=== PATIENT | male | born 1975 | race African-American/Black ===

== ENCOUNTER 2019-04-05 18:36 | Inpatient (IN) | payer OTHER ==
[2019-04-05 18:48] VITALS: BMI 24.6
--- NOTE | 2019-04-05 18:48 | PDOC ---
Rapid Medical Evaluation Medical Evaluation: 04/05/19 18:43 CC: abscess to right buttock and left axilla PE: deferred. HR-107. AF. Orders: Nothing Patient will proceed to ED for continued evaluation. 04/05/19 18:48 Discharge Disposition - Diagnosis Abscess - Referrals - Patient Instructions - Post Discharge Activity
--- NOTE | 2019-04-05 19:07 | PDOC ---
History of Present Illness - General Chief Complaint: Abscess Boil Stated Complaint: FEVER/HEADACHE/BOIL/ Time Seen by Provider: 04/05/19 18:42 History Source: Patient - History of Present Illness Initial Comments: 04/05/19 19:55 Chief complaint: Fever and sores Patient is a healthy 44-year-old male who states that he has been having fevers on and off for 1 week, questionable upper respiratory symptoms. Had an runny nose which seems to have resolved. Patient states he has been sweating all week , sweating last night. Patient does not seem to be running a fever today, did not take any antipyretics. Patient came to the ER because he noticed in the last few days he had a pimple on his buttocks which has since popped but is now much bigger and worse and is draining. Patient also complaining of 1 to the left axilla and one on the abdominal wall. Patient states his last HIV test was 2 years ago. Is with 1 partner. 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 GENERAL/CONSTITUTIONAL: +fever, no: Weakness. dizziness HEAD, EYES, EARS, NOSE AND THROAT: No change in vision. No ear pain or discharge. No sore throat. CARDIOVASCULAR: No chest pain RESPIRATORY: No shortness of breath or cough GASTROINTESTINAL: No pain, nausea, vomiting, diarrhea or constipation GENITOURINARY: No dysuria MUSCULOSKELETAL: No neck or back pain SKIN: +? Abscesses NEUROLOGIC: No headache, vertigo, loss of consciousness, or loss of sensation. GENERAL: The patient is awake, alert, and fully oriented, in no acute distress. HEAD: Normal with no signs of trauma. EYES: Pupils equal, round and reactive to light, sclera anicteric, conjunctiva clear. ENT: pharynx: no erythema, no exudate, uvula midline NECK: supple CHEST: clear, nontender, rr ABD: soft, with 2 cm raised area, non-erythemic, hard to the right waistline with some scaling at the top of it, consistent with small abscess, nonfluctuant. Buttocks with 6 cm round tender, warm, erythemic, hard area with open center, abraded with small amount of drainage. BACK: no tenderness or signs of injury EXTREMITIES: Left axilla with small tender hard non-erythemic area, less than 2 cm. Rest of extremities, normal range of motion, no edema. NEUROLOGICAL: Normal speech, normal gait. SKIN: Warm, Dry Past History - Past Medical History Allergies/Adverse Reactions: Allergies Allergy/AdvReac Type Severity Reaction Status Date / Time No Known Allergies Allergy Verified 04/05/19 18:43 - Psycho Social/Smoking Cessation Hx Smoking History: Current every day smoker Have you smoked in the past 12 months: Yes Number of Cigarettes Smoked Daily: 0 Information on smoking cessation initiated: Yes Hx Alcohol Use: No Drug/Substance Use Hx: Yes *Physical Exam - Vital Signs Last Vital Signs Temp Pulse Resp BP Pulse Ox 98.1 F 107 H 18 150/66 98 04/05/19 18:43 04/05/19 18:43 04/05/19 18:43 04/05/19 18:43 04/05/19 18:43 ED Treatment Course - LABORATORY CBC & Chemistry Diagram: 04/05/19 19:50 04/05/19 19:50 Medical Decision Making - Medical Decision Making 04/05/19 19:59 Healthy 44-year-old male with fevers on and off who also has cellulitis/ questionable abscess to the buttocks, not including the perineal area and 2 small satellite lesions, one in the left axilla and one on the waistline that are much smaller and non-erythemic. Patient with last HIV test 2 years ago, states a monogamous relationship. 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 Patient will need labs given the size of the area and need for CT scan, check for white count, lactic acid. Signed out to SAYRA Lux for further evaluation and work-up 04/05/19 20:01 Discharge - Discharge Information Problems reviewed: Yes Clinical Impression/Diagnosis: Abscess - Follow up/Referral - Patient Discharge Instructions - Post Discharge Activity
[2019-04-05 20:08] LABS: BASO % 0.7 % (0-2.0); EOS % 0.5 % (0-4.5); HEMATOCRIT 39.6 % (35.4-49); LYMPH % 21.4 % (8-40); MCH 31.9 pg (25.7-33.7); MCHC 32.9 g/dl (32.0-35.9); MEAN PLT VOLUME 8.6 fl (7.5-11.1); MONO % 12.9 % (3.8-10.2); NEUT % 64.5 % (42.8-82.8); PLATELET COUNT 259 K/MM3 (134-434); RBC 4.08 M/mm3 (4.00-5.60); RDW 12.8 % (11.9-15.9); WHITE BLOOD COUNT 17.2 K/mm3 (4.0-10.0)
[2019-04-05 20:25] LABS: BLOOD UREA NITROGEN 13.5 mg/dL (7-18); CALCIUM 8.9 mg/dL (8.5-10.1); CREATININE 1.2 mg/dL (0.55-1.3); POTASSIUM 3.9 mmol/L (3.5-5.1)
--- NOTE | 2019-04-05 20:31 | PDOC ---
*Physical Exam - Vital Signs Last Vital Signs Temp Pulse Resp BP Pulse Ox 98.1 F 107 H 18 150/66 98 04/05/19 18:43 04/05/19 18:43 04/05/19 18:43 04/05/19 18:43 04/05/19 18:43 ED Treatment Course - LABORATORY CBC & Chemistry Diagram: 04/05/19 19:50 04/05/19 19:50 - ADDITIONAL ORDERS Additional order review: Laboratory Results 04/05/19 04/05/19 19:50 19:50 Sodium 136 Potassium 3.9 Chloride 104 Carbon Dioxide 27 Anion Gap 4 L BUN 13.5 Creatinine 1.2 Est GFR (CKD-EPI)AfAm 84.13 Est GFR (CKD-EPI)NonAf 72.59 Random Glucose 129 H Lactic Acid 0.9 Calcium 8.9 04/05/19 19:50 RBC 4.08 MCV 97.0 H MCHC 32.9 RDW 12.8 MPV 8.6 Neutrophils % 64.5 Lymphocytes % 21.4 Monocytes % 12.9 H Eosinophils % 0.5 Basophils % 0.7 - RADIOLOGY Radiology Studies Ordered: Category Date Time Status PELVIS CT WITH CONTRAST [CT] Stat CT Scan 04/05/19 20:24 Ordered Medical Decision Making - Medical Decision Making Patient signed out to me by 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 Melissa Labs reviewed and notable for marked leukocytosis, lactic is normal Patient is currently pending results of pelvis CT 04/05/19 20:31 CT pelvis shows 3.4 x 2 x 1 cm superficial subcutaneous fluid structure in the right buttock, likely an abscess No other findings noted I&D was performed for right buttock abscess with large amount of drainage (mix of blood and purulent drainage), site of I&D was packed with iodoform packing Patient tolerated procedure well Patient given dose of clindamycin We will admit patient for observation 04/05/19 23:46 Discharge - Discharge Information Problems reviewed: Yes Clinical Impression/Diagnosis: Abscess Condition: Stable - Admission Yes - Follow up/Referral - Patient Discharge Instructions - Post Discharge Activity
[2019-04-05] MEDS ORDERED: CLINDAMYCIN 600MG PREMIX IVPB 600 MG/50 ML BAG IVPB ONE (21:45)
--- NOTE | 2019-04-06 00:42 | HP ---
CHIEF COMPLAINT: skin abscess PCP: none HISTORY OF PRESENT ILLNESS: 44 y.o. M no significant PMH or surgical hx presenting for multiple skin abscesses. 5 days ago the patient noticed a pimple on his R buttock & popped it. The next day he noticed increasing tenderness and edema surrounding the site with mild pain. He also began to have fevers at home Tmax 102F. At this time he also noted he had another pimple at his right waistband; he did not pop this one but it also became tender, warm, red and edematous. He endorses a recent weight loss of ~8 lbs this week, decreased PO intake, chills, myalgias and diaphoresis over the last few days as well. Denies N/V/D/ penile discharge/ pelvic pain. These symptoms have prohibitied him from using the gym which he does regularly. He states when he works out he usually wears long pants/ shirts and does not have much direct skin to skin contact with gym equipment. Yesterday he began having L axillary discomfort and noticed another pimple in the L axilla. Denies sick contacts/ recent travel. 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 Smoking: denies Alcohol: denies Drugs: occasional marijuana Sexual history: monogomous with 1 female partner. Recently tested for HIV & other std's, all negative Allergies No Known Allergies Allergy (Verified 04/05/19 18:43) HOME MEDICATIONS: REVIEW OF SYSTEMS CONSTITUTIONAL: fever, chills, diaphoresis, generalized weakness, malaise, loss of appetite, weight change Absent: HEENT: Absent: rhinorrhea, nasal congestion, throat pain, throat swelling, difficulty swallowing, mouth swelling, ear pain, eye pain, visual changes CARDIOVASCULAR: Absent: chest pain, syncope, palpitations, irregular heart rate, lightheadednes s, peripheral edema RESPIRATORY: Absent: cough, shortness of breath, dyspnea with exertion, orthopnea, wheezing, stridor, hemoptysis GASTROINTESTINAL: Absent: abdominal pain, abdominal distension, nausea, vomiting, diarrhea, constipation, melena, hematochezia GENITOURINARY: Absent: dysuria, frequency, urgency, hesitancy, hematuria, flank pain, genital pain MUSCULOSKELETAL: myalgia Absent: arthralgia, joint swelling, back pain, neck pain SKIN: Absent: rash, itching, pallor HEMATOLOGIC/IMMUNOLOGIC: Absent: easy bleeding, easy bruising, lymphadenopathy, frequent infections ENDOCRINE: Absent: heat intolerance, cold intolerance NEUROLOGIC: Absent: headache, focal weakness or paresthesias, dizziness, unsteady gait, seizure, mental status changes, bladder or bowel incontinence PSYCHIATRIC: Absent: anxiety, depression, suicidal or homicidal ideation, hallucinations. PHYSICAL EXAMINATION Vital Signs - 24 hr 04/05/19 18:43 Temperature 98.1 F Pulse Rate 107 H Respiratory 18 Rate Blood Pressure 150/66 O2 Sat by Pulse 98 Oximetry (%) GENERAL: Awake, alert, and fully oriented, in no acute distress. HEENT: NCAT. No lymphadenopathy noted. LUNGS: CTABL. No wheezes, and no crackles. No accessory muscle use. HEART: RRR, S1 and S2 without mrg ABDOMEN: Soft NTND +BS MUSCULOSKELETAL: Full ROM all joints. EXTREMITIES: 2+ pulses, warm, well-perfused. No peripheral edema. GENITOURINARY: No groin lymphadenopathy noted. NEUROLOGICAL: Cranial nerves II-XII intact. PSYCHIATRIC: Appropriate mood and affect. SKIN: incised & drained abscess to R buttock; surrounding area erythematous & warm to touch. Serosanguinous discharge noted on dressing. another R- suprapubic abscess noted; firm to touch, ~3x4cm nonpurulent; point of central punctation noted. L axillary pimple noted. Laboratory Results - last 24 hr Laboratory Last Values WBC 17.2 K/mm3 (4.0-10.0) H 04/05/19 19:50 RBC 4.08 M/mm3 (4.00-5.60) 04/05/19 19:50 Hgb 13.0 GM/dL (11.7-16.9) 04/05/19 19:50 Hct 39.6 % (35.4-49) 04/05/19 19:50 MCV 97.0 fl (80-96) H 04/05/19 19:50 MCH 31.9 pg (25.7-33.7) 04/05/19 19:50 MCHC 32.9 g/dl (32.0-35.9) 04/05/19 19:50 RDW 12.8 % (11.9-15.9) 04/05/19 19:50 Plt Count 259 K/MM3 (134-434) 04/05/19 19:50 MPV 8.6 fl (7.5-11.1) 04/05/19 19:50 Absolute Neuts (auto) 11.1 K/mm3 (1.5-8.0) H 04/05/19 19:50 Neutrophils % 64.5 % (42.8-82.8) 04/05/19 19:50 Lymphocytes % 21.4 % (8-40) 04/05/19 19:50 Monocytes % 12.9 % (3.8-10.2) H 04/05/19 19:50 Eosinophils % 0.5 % (0-4.5) 04/05/19 19:50 Basophils % 0.7 % (0-2.0) 04/05/19 19:50 Nucleated RBC % 0 % (0-0) 04/05/19 19:50 Sodium 136 mmol/L (136-145) 04/05/19 19:50 Potassium 3.9 mmol/L (3.5-5.1) 04/05/19 19:50 Chloride 104 mmol/L (98-107) 04/05/19 19:50 Carbon Dioxide 27 mmol/L (21-32) 04/05/19 19:50 Anion Gap 4 MMOL/L (8-16) L 04/05/19 19:50 BUN 13.5 mg/dL (7-18) 04/05/19 19:50 Creatinine 1.2 mg/dL (0.55-1.3) 04/05/19 19:50 Est GFR (CKD-EPI)AfAm 84.13 04/05/19 19:50 Est GFR (CKD-EPI)NonAf 72.59 04/05/19 19:50 Random Glucose 129 mg/dL (74-106) H 04/05/19 19:50 Lactic Acid 0.9 mmol/L (0.4-2.0) 04/05/19 19:50 Calcium 8.9 mg/dL (8.5-10.1) 04/05/19 19:50 HIV 1&2 Antibody Screen Negative 04/05/19 21:24 HIV P24 Antigen Negative 04/05/19 21:24 ASSESSMENT/PLAN: 44 y.o. M no PMH presenting for multiple skin abscesses. #Sepsis likely 2/2 skin abscesses -present @ R buttock & R pubis-- pelvic ct showing 3.4 x 2 x 1cm superficial subcutaneous fluid structure along R buttock w/ surrounding edema -no lymphadenopathy noted on physical exam -leukocytosis 17.2; afebrile in ED -s/p clindamycin 1 dose in ED -continuing on vanc & zosyn -HIV negative -F/u MRSA, flu swabs -f/u blood & urine cultures, UA, G/C -ID consulted-- Dr. Solo -Gen surg consulted- Dr. Fairchild #FEN -gentle hydration -replete lytes as needed -NPO pending surgical recs #PPX -heparin sq #Dispo med surg Visit type - Emergency Visit Emergency Visit: Yes ED Registration Date: 04/06/19 Care time: The patient presented to the Emergency Department on the above date and was hospitalized for further evaluation of their emergent condition. - New Patient This patient is new to me today: Yes Date on this admission: 04/20/19 - Critical Care Critical Care patient: No ATTENDING PHYSICIAN STATEMENT I saw and evaluated the patient. I reviewed the resident's note and discussed the case with the resident. I agree with the resident's findings and plan as documented. SUBJECTIVE: OBJECTIVE: ASSESSMENT AND PLAN:
[2019-04-06] MEDS ORDERED: SODIUM CHLORIDE 1,000 ML IV SCH (00:45)
--- NOTE | 2019-04-06 01:58 | PN ---
Teaching Attending Note Name of Resident: Ileana Parr ATTENDING PHYSICIAN STATEMENT I saw and evaluated the patient. I reviewed the resident's note and discussed the case with the resident. I agree with the resident's findings and plan as documented. SUBJECTIVE: 44-year-old male previously healthy with no significant past medical history presents with right buttock abscess, left axilla abscess, suprapubic abscess that he noticed about 1 to 2 weeks ago. He also reported some recent chills and about a 8 pound weight loss over the past week. He denies any past medical history, no family history of diabetes. He reports working out regularly at the gym, does lay on the mats often. No previous skin infections in the past.Denied any history of needle use. In the emergency room received 1 dose of IV clindamycin and right buttock abscess was drained and packed. No culture was sent. OBJECTIVE: Last Vital Signs Temp Pulse Resp BP Pulse Ox 98.1 F 107 H 18 150/66 98 04/05/19 18:43 04/05/19 18:43 04/05/19 18:43 04/05/19 18:43 04/05/19 18:43 Physical exam was remarkable for a well-built male with a right buttock abscess that was status post drainage impact. Suprapubic fluctuant area, erythematous. Left axilla with fluctuant erythematous mass. Rest of physical exam is unremarkable. Abnormal Lab Results 04/05/19 04/05/19 19:50 19:50 WBC 17.2 H MCV 97.0 H Absolute Neuts (auto) 11.1 H Monocytes % 12.9 H Anion Gap 4 L Random Glucose [address] was performed and showed a 3.4 cm x 2 x 1 cm superficial subcutaneous subtle fluid structure along the right buttock HIV serology was negative ASSESSMENT AND PLAN: 44-year-old male with sepsis secondary to multiple skin infections, abscess as described above status post I&D and packing. Should rule out flu with flu swab. Admit to [facility] Blood cultures sent IV Zosyn and vancomycin empirically ID consult Drains suprapubic and left axilla cultures with surgery Send abscess for culture MRSA nares screen Send hemoglobin A1c to rule out diabetes Advise better hygiene while at gym SCDs for DVT prophylaxis
[2019-04-06] MEDS ORDERED: PIPERACILLIN/TAZOB 3.375 GM 3.375 GM in DEXTROSE 5%-WATER - 50 ML IVPB SCH ×2 (03:00→05:04)
[2019-04-06] MEDS ORDERED: PIPERACILLIN/TAZOB 3.375 GM 3.375 GM/50 ML BAG IVPB ONE (03:20)
[2019-04-06] MEDS ORDERED: VANCOMYCIN 1 GM in D5W (PRE-DOCKED) 1,000 MG/250 ML IVPB SCH (05:15)
--- NOTE | 2019-04-06 06:19 | PDOC ---
*Physical Exam - Vital Signs Last Vital Signs Temp Pulse Resp BP Pulse Ox 98.1 F 107 H 18 150/66 98 04/05/19 18:43 04/05/19 18:43 04/05/19 18:43 04/05/19 18:43 04/05/19 18:43 ED Treatment Course - LABORATORY CBC & Chemistry Diagram: 04/05/19 19:50 04/05/19 19:50 - ADDITIONAL ORDERS Additional order review: Laboratory Results 04/05/19 04/05/19 19:50 19:50 Sodium 136 Potassium 3.9 Chloride 104 Carbon Dioxide 27 Anion Gap 4 L BUN 13.5 Creatinine 1.2 Est GFR (CKD-EPI)AfAm 84.13 Est GFR (CKD-EPI)NonAf 72.59 Random Glucose 129 H Lactic Acid 0.9 Calcium 8.9 04/05/19 19:50 RBC 4.08 MCV 97.0 H MCHC 32.9 RDW 12.8 MPV 8.6 Neutrophils % 64.5 Lymphocytes % 21.4 Monocytes % 12.9 H Eosinophils % 0.5 Basophils % 0.7 - Medications Given in the ED: ED Medications Discontinued Medications Generic Name Dose Route Start Last Admin Trade Name Freq PRN Reason Stop Dose Admin Clindamycin Phosphate 600 mg in 50 mls @ 100 mls/hr 04/05/19 21:45 04/05/19 23:08 Cleocin 600 Mg Premix Ivpb - IVPB 04/05/19 22:14 100 mls/hr ONCE ONE Administration Piperacillin Sod/Tazobactam 50 mls @ 100 mls/hr 04/06/19 03:00 04/06/19 03:45 Sod 3.375 gm/ Dextrose IVPB 100 mls/hr Q6H JEFFREY Administration Protocol Medical Decision Making - Medical Decision Making 04/06/19 06:18 Case reviewed, agree with assessment and plan Discharge - Discharge Information Problems reviewed: Yes Clinical Impression/Diagnosis: Abscess Condition: Stable - Follow up/Referral - Patient Discharge Instructions - Post Discharge Activity
[2019-04-06] MEDS ORDERED: HEPARIN NA (PORCINE) 5,000 UNITS/ML 1ML VIAL ONE (06:23)
[2019-04-06] MEDS ORDERED: VANCOMYCIN 1 GRAM (PRE-DOCKED) 1,000 MG/250 ML BAG IVPB ONE (06:23)
[2019-04-06] MEDS: HEPARIN NA (PORCINE) 5,000 UNITS/ML 1ML VIAL SQ SCH ×2 (06:54→16:03)
--- NOTE | 2019-04-06 08:34 | CONSULT ---
- Consultation REQUESTING PROVIDER: CONSULT REQUEST: We have been asked to surgically evaluate this patient for buttock abscess PCP:Odette Fofana NP HISTORY OF PRESENT ILLNESS: 44yo M was consulted to surgery for buttock abscess. Pt states that swelling started about 3 days ago first as a pimple then got bigger and more painful. Pt denies fever, n/v, diarrhea, or constipation. Pt denies previous history of buttock abscess. PMHx: denies PSHx: denies Home Medications Medication Instructions Recorded NK [No Known Home Medication] 04/06/19 Allergies Allergy/AdvReac Type Severity Reaction Status Date / Time No Known Allergies Allergy Verified 04/05/19 18:43 REVIEW OF SYSTEMS: CONSTITUTIONAL: Absent: fever, chills, diaphoresis, generalized weakness, malaise, loss of appetite, weight change CARDIOVASCULAR: Absent: chest pain, syncope, palpitations, irregular heart rate, lightheadedness , peripheral edema RESPIRATORY: Absent: cough, shortness of breath, dyspnea with exertion, wheezing, stridor, hemoptysis GASTROINTESTINAL: Absent: abdominal pain, abdominal distension, nausea, vomiting, diarrhea, constipation, melena, hematochezia GENITOURINARY: Absent: dysuria, frequency, urgency, hesitancy, hematuria, flank pain, genital pain MUSCULOSKELETAL: Absent: myalgia, arthralgia, joint swelling, back pain, neck pain PHYSICAL EXAM: GENERAL: Awake, alert, and fully oriented, in no acute distress. HEAD: Normal with no signs of trauma. EYES: PERRL, sclera anicteric, conjunctiva clear. NECK: Normal ROM, JVD, or masses. LUNGS: breathing comfortably MUSCULOSKELETAL: Normal ROM at all joints. No bony deformities or tenderness. No CVA tenderness. UPPER EXTREMITIES: warm, well-perfused. No cyanosis. Cap refill <2 seconds. No peripheral edema. LOWER EXTREMITIES: warm, well-perfused. No calf tenderness. No peripheral edema. NEUROLOGICAL: Normal speech, gait not observed. PSYCH: Cooperative. Good eye contact. Appropriate mood and affect. SKIN: Rt buttock shows 3cm x 4cm hard tender, purulent discharge, previous I&D incision with packing in place. Rt inguinal area shows 2 x 2cm tender swelling, no active drainage, mild fluctulance Vital Signs Temperature 100 F H 04/06/19 07:07 Pulse Rate 123 H 04/06/19 07:07 Respiratory Rate 18 04/06/19 07:07 Blood Pressure 96/47 L 04/06/19 07:07 O2 Sat by Pulse Oximetry (%) 100 04/06/19 07:07 Lab Results WBC 17.2 K/mm3 (4.0-10.0) H 04/05/19 19:50 RBC 4.08 M/mm3 (4.00-5.60) 04/05/19 19:50 Hgb 13.0 GM/dL (11.7-16.9) 04/05/19 19:50 Hct 39.6 % (35.4-49) 04/05/19 19:50 MCV 97.0 fl (80-96) H 04/05/19 19:50 MCHC 32.9 g/dl (32.0-35.9) 04/05/19 19:50 RDW 12.8 % (11.9-15.9) 04/05/19 19:50 Plt Count 259 K/MM3 (134-434) 04/05/19 19:50 Sodium 136 mmol/L (136-145) 04/05/19 19:50 Potassium 3.9 mmol/L (3.5-5.1) 04/05/19 19:50 Chloride 104 mmol/L (98-107) 04/05/19 19:50 Carbon Dioxide 27 mmol/L (21-32) 04/05/19 19:50 Anion Gap 4 MMOL/L (8-16) L 04/05/19 19:50 BUN 13.5 mg/dL (7-18) 04/05/19 19:50 Creatinine 1.2 mg/dL (0.55-1.3) 04/05/19 19:50 Random Glucose 129 mg/dL (74-106) H 04/05/19 19:50 Calcium 8.9 mg/dL (8.5-10.1) 04/05/19 19:50 Problem List - Problems (1) Abscess Assessment/Plan: Plan -will bring to OR today for formal incision and drainage of buttock abscess -continue antibiotics per med/ID -NPO, IVF Pt discussed with Dr. Fairchild who agrees with plan Code(s): L02.91 - CUTANEOUS ABSCESS, UNSPECIFIED
[2019-04-06 08:38] LABS: BASO % 0.2 % (0-2.0); EOS % 0.6 % (0-4.5); HEMATOCRIT 36.1 % (35.4-49); LYMPH % 18.5 % (8-40); MCH 32.1 pg (25.7-33.7); MCHC 33.3 g/dl (32.0-35.9); MEAN CELL VOLUME 96.2 fl (80-96); MEAN PLT VOLUME 8.5 fl (7.5-11.1); MONO % 13.2 % (3.8-10.2); NEUT % 67.5 % (42.8-82.8); PLATELET COUNT 250 K/MM3 (134-434); RBC 3.75 M/mm3 (4.00-5.60); RDW 12.8 % (11.9-15.9); WHITE BLOOD COUNT 14.7 K/mm3 (4.0-10.0)
[2019-04-06 08:56] LABS: INR 1.38 (0.83-1.09); PROTHROMBIN TIME (PATIENT) 16.3 SEC (9.7-13.0)
[2019-04-06 08:59] LABS: ACTIVATED PTT 33.6 SECONDS (25.2-36.5)
[2019-04-06 09:02] LABS: ALBUMIN 3.1 g/dl (3.4-5.0); BILIRUBIN,TOTAL 0.8 mg/dL (0.2-1); BLOOD UREA NITROGEN 11.2 mg/dL (7-18); CALCIUM 8.4 mg/dL (8.5-10.1); CREATININE 1.1 mg/dL (0.55-1.3); POTASSIUM 3.9 mmol/L (3.5-5.1); TOT PROT 7.2 g/dl (6.4-8.2)
--- NOTE | 2019-04-06 10:15 | PN ---
Physical Exam: SUBJECTIVE: Patient seen and examined in ED holding awaiting bed assignment. for the OR today, however patient was not NPO and ate breakfast. NPO ordered now placed. PA aware. OBJECTIVE: Patient is a 44 year old male with no significant past medical history. He reports fever and chills at home for past few days. he presents with multiple skin abscesses. He first noticed a pimple on right buttocks which he popped. He also began to have fevers at home Tmax 102F. At this time he also noted he had another pimple at his right waistband; he did not pop this one but it also became tender, warm, red and edematous. He endorses a recent weight loss of ~8 lbs this week, decreased PO intake, chills, myalgias and diaphoresis over the last few days as well. Yesterday he began having L axillary discomfort and noticed another pimple in the L axilla. Denies sick contacts/ recent travel. In the ED a right buttock abscess was drained and packing placed. site is stained and intact. Period Temp Pulse Resp BP Sys/Corbett Pulse Ox Last 24 Hr 98.1 F-100 F 69-123 18-18 96-150/37-66 98-100 GENERAL: The patient is awake, alert, and fully oriented, in no acute distress. HEAD: Normal with no signs of trauma. EYES: PERRL, extraocular movements intact, sclera anicteric, conjunctiva clear. No ptosis. ENT: Ears normal, nares patent, oropharynx clear without exudates, moist mucous membranes. NECK: Trachea midline, full range of motion, supple. LUNGS: Breath sounds equal, clear to auscultation bilaterally, no wheezes HEART: Regular rate and rhythm ABDOMEN: Soft, nontender, nondistended, normoactive bowel sounds EXTREMITIES: no edema. SKIN: (s/p I&D right buttocks with reddened surrounding skin-dressing stained and intact), suprapubic abscess/mass noted which firm and tender to touch. left axillary pimple, reddened and tender. Laboratory Results - last 24 hr 04/05/19 04/05/19 04/05/19 19:50 19:50 19:50 WBC 17.2 H RBC 4.08 Hgb 13.0 Hct 39.6 MCV 97.0 H MCH 31.9 MCHC 32.9 RDW 12.8 Plt Count 259 MPV 8.6 Absolute Neuts (auto) 11.1 H Neutrophils % 64.5 Lymphocytes % 21.4 Monocytes % 12.9 H Eosinophils % 0.5 Basophils % 0.7 Nucleated RBC % 0 PT with INR INR PTT (Actin FS) Sodium 136 Potassium 3.9 Chloride 104 Carbon Dioxide 27 Anion Gap 4 L BUN 13.5 Creatinine 1.2 Est GFR (CKD-EPI)AfAm 84.13 Est GFR (CKD-EPI)NonAf 72.59 Random Glucose 129 H Hemoglobin A1c % Lactic Acid 0.9 Calcium 8.9 Total Bilirubin AST ALT Alkaline Phosphatase Total Protein Albumin HIV 1&2 Antibody Screen HIV P24 Antigen Influenza A (Rapid) Influenza B (Rapid) 04/05/19 04/06/19 04/06/19 21:24 06:20 07:55 WBC 14.7 H RBC 3.75 L Hgb 12.0 Hct 36.1 MCV 96.2 H MCH 32.1 MCHC 33.3 RDW 12.8 Plt Count 250 MPV 8.5 Absolute Neuts (auto) 9.9 H Neutrophils % 67.5 Lymphocytes % 18.5 Monocytes % 13.2 H Eosinophils % 0.6 Basophils % 0.2 Nucleated RBC % 0 PT with INR INR PTT (Actin FS) Sodium Potassium Chloride Carbon Dioxide Anion Gap BUN Creatinine Est GFR (CKD-EPI)AfAm Est GFR (CKD-EPI)NonAf Random Glucose Hemoglobin A1c % Lactic Acid Calcium Total Bilirubin AST ALT Alkaline Phosphatase Total Protein Albumin HIV 1&2 Antibody Screen Negative HIV P24 Antigen Negative Influenza A (Rapid) Negative Influenza B (Rapid) Negative 04/06/19 04/06/19 04/06/19 07:55 07:55 07:55 WBC RBC Hgb Hct MCV MCH MCHC RDW Plt Count MPV Absolute Neuts (auto) Neutrophils % Lymphocytes % Monocytes % Eosinophils % Basophils % Nucleated RBC % PT with INR 16.30 H INR 1.38 H PTT (Actin FS) 33.6 Sodium 137 Potassium 3.9 Chloride 105 Carbon Dioxide 30 Anion Gap 3 L BUN 11.2 Creatinine 1.1 Est GFR (CKD-EPI)AfAm 93.47 Est GFR (CKD-EPI)NonAf 80.64 Random Glucose 114 H Hemoglobin A1c % 5.1 Lactic Acid Calcium 8.4 L Total Bilirubin 0.8 AST 14 L ALT 24 Alkaline Phosphatase 99 Total Protein 7.2 Albumin 3.1 L HIV 1&2 Antibody Screen HIV P24 Antigen Influenza A (Rapid) Influenza B (Rapid) Active Medications Generic Name Dose Route Start Last Admin Trade Name Freq PRN Reason Stop Dose Admin Heparin Sodium (Porcine) 5,000 unit 04/06/19 06:00 04/06/19 06:54 Heparin - SQ 5,000 unit TID JEFFREY Administration Sodium Chloride 1,000 mls @ 75 mls/hr 04/06/19 00:45 04/06/19 01:14 Normal Saline - IV 75 mls/hr ASDIR JEFFREY Administration Piperacillin Sod/Tazobactam 50 mls @ 100 mls/hr 04/06/19 05:04 Sod 3.375 gm/ Dextrose IVPB 04/06/19 21:29 Q6H-IV JEFFREY Protocol Piperacillin Sod/Tazobactam 50 mls @ 100 mls/hr 04/07/19 03:00 Sod 3.375 gm/ Dextrose IVPB Q6H-IV JEFFREY Protocol Vancomycin HCl 1,000 mg 04/07/19 05:15 Vancomycin (Pre-Docked) IVPB Q24H JEFFREY Protocol ASSESSMENT/PLAN: Problem List - Problems (1) Leukocytosis Assessment/Plan: wbc 17 on zosyn/vanco id following Code(s): D72.829 - ELEVATED WHITE BLOOD CELL COUNT, UNSPECIFIED (2) Abscess Assessment/Plan: multiple abscess, for OR for formal incision and drainage of buttock abscess. on zosyn and vanco per ID. Code(s): L02.91 - CUTANEOUS ABSCESS, UNSPECIFIED (3) Fever Code(s): R50.9 - FEVER, UNSPECIFIED (4) Skin abscess Assessment/Plan: for surgical intervention Code(s): L02.91 - CUTANEOUS ABSCESS, UNSPECIFIED (5) DVT prophylaxis Assessment/Plan: on heparin early ambulation post surgery incentive spirometer Code(s): Z29.9 - ENCOUNTER FOR PROPHYLACTIC MEASURES, UNSPECIFIED (6) Prophylactic measure Assessment/Plan: on heparin incentive spirometer Code(s): Z29.9 - ENCOUNTER FOR PROPHYLACTIC MEASURES, UNSPECIFIED Visit type - Emergency Visit Emergency Visit: Yes ED Registration Date: 04/06/19 Care time: The patient presented to the Emergency Department on the above date and was hospitalized for further evaluation of their emergent condition. - New Patient This patient is new to me today: Yes Date on this admission: 04/06/19 - Critical Care Critical Care patient: No - Discharge Referral Referred to [facility] Med P.C.: No
--- NOTE | 2019-04-06 11:06 | PN ---
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 developed flu like symptoms almost 2 weeks ago, followed by a pimple on his right buttock about 5 days ago- he squeezed and popped thi pimple and the area became larger and more painful he also notes a pimple in his right groin and left axilla no antibiotics at home fever of 102 at home, no appetite 8 pound weight loss no IVDU no prior skin infections no diabetes-hgbaic normal multiple skin abscesses suggestive of community MRSA infection r/o bacteremia- f/u blood cultures culture the abscess operative debridement today vanco/zosyn hiv testing Problem List - Problems (1) Fever Code(s): R50.9 - FEVER, UNSPECIFIED (2) Skin abscess Code(s): L02.91 - CUTANEOUS ABSCESS, UNSPECIFIED
[2019-04-06] MEDS: PIPERACILLIN/TAZOB 3.375 GM 3.375 GM in DEXTROSE 5%-WATER - 50 ML IVPB SCH ×3 (12:19→22:23)
--- NOTE | 2019-04-06 14:10 | CONS ---
INFECTIOUS DISEASE CONSULTATION DATE OF CONSULTATION: DATE OF DICTATION: 04/06/2019 HISTORY OF PRESENT ILLNESS: This is a 44-year-old man. No prior admissions. 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 About 2 weeks ago, he had a flu-like syndrome with fevers and chills. He had a lot of sweats. After that, he developed a pimple on his right buttock that he squeezed and drained. He says about 5 days ago, at the same time, he noted he was getting a pimple on his right groin. The buttock pimple became indurated and painful and he presented to the ER. He reports he has been having fevers at home as high as 102. He has had some anorexia and an 8-pound weight loss. There has been no nausea, vomiting, diarrhea or dysuria. He denies any history of injection substance use. Last HIV test 3 years ago was negative. He never had an abscess before and his partner did not, as well. He denies any history of eczema in the past. PAST MEDICAL HISTORY: Unremarkable. SURGICAL HISTORY: Unremarkable. He has had two fractures of his finger playing basketball. 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 Denies alcohol or substance use. Smokes marijuana occasionally. He has 1 female partner. ALLERGIES: There are no known drug allergies. REVIEW OF SYSTEMS: As per HPI. He denies nausea, vomiting, diarrhea or dysuria and is feeling better today. PHYSICAL EXAMINATION: Vital Signs: His T-maximum is 100, pulse is 123, blood pressure 96/47, respiratory rate 18, he is saturating 100% on room air. HEENT: He is normocephalic. His eyes are anicteric. There are no conjunctival hemorrhages. He had no thrush. Neck: Supple. Lungs: Clear to auscultation. Heart: Regular rate and rhythm. Abdomen: Soft. Nontender. Extremities: Without edema. Skin: The abscess on his buttock was drained in the ER and packed. He has purulence extruding from the area from around the site of the packing. He has an indurated, 2-cm subcutaneous abscess in his right groin, as well as a -cm indurated area under his left axilla. LABORATORIES: Notable admission white count of 17, today is 14.7, hemoglobin is 12, platelets are 250. BUN and creatinine are 11 and 1.1. Hemoglobin A1c is 5.1. LFTs are normal. Cultures are pending. IMAGING: He had a CT of his pelvis done that shows a 3.4 x 2 x 1-cm superficial subcutaneous collection in the right buttock. In summary, this is a 44-year-old man with multiple skin abscesses suggestive of community MRSA infection. Rule out bacteremia. Follow up blood cultures. Would culture the abscess. Operative debridement today. Vancomycin and Zosyn for now. HIV testing has been ordered. Further recommendations to follow. Stefany [id number]
[2019-04-06 14:36] LABS: PH,URINE 5.5 (5.0-8.0); URINE APPEARANCE CLEAR; URINE BILIRUBIN NEGATIVE (NEGATIVE); URINE COLOR YELLOW; URINE GLUCOSE (UA) NEGATIVE (NEGATIVE); URINE KETONE NEGATIVE (NEGATIVE); URINE LEUK ESTERASE NEGATIVE (NEGATIVE); URINE NITRITE NEGATIVE (NEGATIVE); URINE PROTEIN NEGATIVE (NEGATIVE)
[2019-04-06] MEDS ORDERED: LIDOCAINE HCL 1%, 10 MG/ML (20ML VIAL) ONE (14:36)
[2019-04-06] MEDS ORDERED: MIDAZOLAM HCL 2 MG/2 ML SINGLE DOSE VIAL ONE ×2 (15:25→16:31)
[2019-04-06] MEDS ORDERED: VANCOMYCIN 1,250 MG in DEXTROSE 5%-WATER - 250 ML IVPB SCH (18:00)
[2019-04-06] MEDS: VANCOMYCIN HCL 1,250 MG in DEXTROSE 5%-WATER - 250 ML IVPB SCH (18:20)
[2019-04-06] MEDS ORDERED: ACETAMINOPHEN 325 MG TABLET (FP) PO ONE (18:30)
[2019-04-06] MEDS ORDERED: oxyCODONE HCL 5 MG TABLET PO ONE (18:30)
[2019-04-06] MEDS: SODIUM CHLORIDE 1,000 ML IV SCH (19:28)
[2019-04-06] MEDS ORDERED: PIPERACILLIN/TAZOBACTAM 3.375 GM VIAL IVPB ONE (22:18)
[2019-04-06] MEDS ORDERED: DEXTROSE 5%-WATER - 50 ML IVPB ONE (22:18)
[2019-04-07] MEDS ORDERED: PIPERACILLIN/TAZOBACTAM 3.375 GM VIAL IVPB ONE ×2 (02:15→09:30)
[2019-04-07] MEDS ORDERED: DEXTROSE 5%-WATER - 50 ML IVPB ONE ×2 (02:15→09:30)
[2019-04-07] MEDS ORDERED: ACETAMINOPHEN 325 MG TABLET (FP) PO ONE (02:21)
[2019-04-07] MEDS: PIPERACILLIN/TAZOB 3.375 GM 3.375 GM in DEXTROSE 5%-WATER - 50 ML IVPB SCH ×2 (02:39→10:00)
[2019-04-07] MEDS ORDERED: VANCOMYCIN 1 GM in D5W (PRE-DOCKED) 1,000 MG/250 ML IVPB SCH (05:15)
[2019-04-07] MEDS: VANCOMYCIN HCL 1,250 MG in DEXTROSE 5%-WATER - 250 ML IVPB SCH ×2 (06:14→17:58)
[2019-04-07] MEDS: ACETAMINOPHEN 325 MG TABLET (FP) PO PRN (07:36)
[2019-04-07 07:55] LABS: BASO % 0.1 % (0-2.0); EOS % 1.7 % (0-4.5); HEMATOCRIT 34.7 % (35.4-49); HEMOGLOBIN 11.9 GM/dL (11.7-16.9); LYMPH % 19.3 % (8-40); MCH 32.7 pg (25.7-33.7); MCHC 34.1 g/dl (32.0-35.9); MEAN CELL VOLUME 95.8 fl (80-96); MEAN PLT VOLUME 8.9 fl (7.5-11.1); NEUT % 63.9 % (42.8-82.8); PLATELET COUNT 251 K/MM3 (134-434); RBC 3.63 M/mm3 (4.00-5.60); RDW 12.5 % (11.9-15.9)
[2019-04-07 08:31] LABS: ALBUMIN 2.9 g/dl (3.4-5.0); BILIRUBIN,TOTAL 0.7 mg/dL (0.2-1); BLOOD UREA NITROGEN 11.8 mg/dL (7-18); CALCIUM 8.7 mg/dL (8.5-10.1); CREATININE 1.2 mg/dL (0.55-1.3); MAGNESIUM 2.1 mg/dL (1.8-2.4); POTASSIUM 4.1 mmol/L (3.5-5.1); TOT PROT 6.4 g/dl (6.4-8.2)
--- NOTE | 2019-04-07 11:53 | PN ---
Progress Note (short form) - Note Progress Note: Attending Surgeon POD#1 Feels better VSS AF wound-open and drained; no purulent drainage; superficial epidermolysis is present; induration persists; o/w negative. WBC 11.0 Culture presumptive MRSA IMP: improved PLAN: Continue present tx.; wound care by RN. Gopal Fairchild MD FACS
--- NOTE | 2019-04-07 12:28 | PN ---
Progress Note (short form) - Note Progress Note: 44M s/p drainage of perirectal abscess under spinal anesthesia. NO new c/o. Vital Signs Temp 98.6 F 04/07/19 06:00 Pulse 76 04/07/19 06:00 Resp 18 04/07/19 09:00 BP 133/52 L 04/07/19 06:00 Pulse Ox 100 04/07/19 09:00 Intake & Output 04/06/19 04/07/19 04/07/19 23:59 11:59 23:59 Intake Total 650 1425 Output Total 0 Balance 650 1425 Intake: IV 350 675 Normal Saline - 1,000 ml 675 @ 75 mls/hr IV ASDIR JEFFREY Rx#:[id number] Normal Saline - 1,000 ml 50 @ 75 mls/hr IV ASDIR JEFFREY Rx#:[id number] IVPB 100 300 Oral 200 450 Output: Urine 0 Other: Voiding Method Toilet Toilet # Unmeasured Voids Void 2 Bowel Movement No No Height 5 ft 9 in CBC, BMP 04/07/19 06:28 04/07/19 06:28 - No anesthesia complications
--- NOTE | 2019-04-07 13:11 | PN ---
Progress Note (short form) - Note Progress Note: feels better s/p operative debridement of the abscess Vital Signs Period Temp Pulse Resp BP Sys/Corbett Pulse Ox Last 24 Hr 97.5 F-98.6 F 52-77 14-20 99-148/45-85 98-100 cor-rrr lungs clear abd soft,nt ext no edema inguinal abscess much smaller axillary nodule resolved CBC, BMP 04/07/19 06:28 04/07/19 06:28 Microbiology 04/06/19 11:00 Abscess Gram Stain - Final 04/06/19 11:00 Abscess Wound Culture - Preliminary Presumptive Mrsa (Pbp2a Pos) 04/05/19 19:50 Blood - Peripheral Venous Blood Culture - Preliminary NO GROWTH OBTAINED AFTER 24 HOURS, INCUBATION TO CONTINUE FOR 4 DAYS. 04/05/19 19:50 Blood - Peripheral Venous Blood Culture - Preliminary NO GROWTH OBTAINED AFTER 24 HOURS, INCUBATION TO CONTINUE FOR 4 DAYS. a/p multiple skin abscesses -community MRSA infection r/o bacteremia- f/u blood cultures f/u abscess cultures continue vancomycin, check levels in am isolation-contact Problem List - Problems (1) Fever Code(s): R50.9 - FEVER, UNSPECIFIED (2) Skin abscess Code(s): L02.91 - CUTANEOUS ABSCESS, UNSPECIFIED
--- NOTE | 2019-04-07 15:42 | PN ---
Physical Exam: SUBJECTIVE: Patient seen and examined. having some soreness at surgical site, otherwise feels well. wanted to go home and explained poc to patient who agrees to stay. OBJECTIVE: Patient is a 44 year old male with no significant past medical history. He reports fever and chills at home for past few days. he presents with multiple skin abscesses. He first noticed a pimple on right buttocks which he popped. He also began to have fevers at home Tmax 102F. At this time he also noted he had another pimple at his suprapubic region; he did not pop this one but it also became tender, warm, red and edematous. He endorses decreased PO intake, chills, myalgias and diaphoresis over the last few days. In the ED a right buttock abscess was drained and packing placed. site is stained and intact. He is s/p I&D of right buttock wound on 04/06/2019. wound culture shows presumptive +mrsa Period Temp Pulse Resp BP Sys/Corbett Pulse Ox Last 24 Hr 97.5 F-98.6 F 52-77 14-20 99-144/45-85 98-100 GENERAL: The patient is awake, alert, and fully oriented, in no acute distress. HEAD: Normal with no signs of trauma. EYES: PERRL, extraocular movements intact, sclera anicteric, conjunctiva clear. No ptosis. ENT: Ears normal, nares patent, oropharynx clear without exudates, moist mucous membranes. NECK: Trachea midline, full range of motion, supple. LUNGS: Breath sounds equal, clear to auscultation bilaterally, no wheezes HEART: Regular rate and rhythm ABDOMEN: Soft, nontender, nondistended, normoactive bowel sounds EXTREMITIES: no edema. SKIN: (s/p I&D right buttocks with reddened surrounding skin-dressing stained and intact), suprapubic abscess/mass noted which firm and tender to touch. left axillary pimple, reddened and tender. Laboratory Results - last 24 hr 04/07/19 04/07/19 06:28 06:28 WBC 11.0 H RBC 3.63 L Hgb 11.9 Hct 34.7 L MCV 95.8 MCH 32.7 MCHC 34.1 RDW 12.5 Plt Count 251 MPV 8.9 Absolute Neuts (auto) 7.0 Neutrophils % 63.9 Lymphocytes % 19.3 Monocytes % 15.0 H Eosinophils % 1.7 D Basophils % 0.1 Nucleated RBC % 0 Sodium 142 Potassium 4.1 Chloride 109 H Carbon Dioxide 28 Anion Gap 5 L BUN 11.8 Creatinine 1.2 Est GFR (CKD-EPI)AfAm 84.13 Est GFR (CKD-EPI)NonAf 72.59 Random Glucose 76 Calcium 8.7 Magnesium 2.1 Total Bilirubin 0.7 AST 17 ALT 22 Alkaline Phosphatase 89 Total Protein 6.4 Albumin 2.9 L Active Medications Generic Name Dose Route Start Last Admin Trade Name Freq PRN Reason Stop Dose Admin Acetaminophen 650 mg 04/07/19 04:22 04/07/19 07:36 Tylenol - PO 650 mg Q4H PRN Administration PAIN LEVEL 1-5 Sodium Chloride 1,000 mls @ 75 mls/hr 04/06/19 17:34 04/06/19 19:28 Normal Saline - IV 75 mls/hr ASDIR JEFFREY Administration Vancomycin HCl 1,250 mg/ 250 mls @ 166.667 mls/hr 04/06/19 18:00 04/07/19 06: 14 Dextrose IVPB 166.667 mls/hr Q12H JEFFREY Administration Protocol ASSESSMENT/PLAN: Problem List - Problems (1) Leukocytosis Assessment/Plan: wbc 17>11 on zosyn/vanco pending wound culture id following Code(s): D72.829 - ELEVATED WHITE BLOOD CELL COUNT, UNSPECIFIED (2) Abscess Assessment/Plan: multiple abscess, s/p I&D of right buttock abscess, cultures preliminary show presumptive mrsa. on zosyn and vanco per ID. Code(s): L02.91 - CUTANEOUS ABSCESS, UNSPECIFIED (3) Fever Code(s): R50.9 - FEVER, UNSPECIFIED (4) Skin abscess Code(s): L02.91 - CUTANEOUS ABSCESS, UNSPECIFIED (5) DVT prophylaxis Assessment/Plan: on heparin early ambulation post surgery incentive spirometer Code(s): Z29.9 - ENCOUNTER FOR PROPHYLACTIC MEASURES, UNSPECIFIED (6) Prophylactic measure Assessment/Plan: on heparin incentive spirometer Code(s): Z29.9 - ENCOUNTER FOR PROPHYLACTIC MEASURES, UNSPECIFIED Visit type - Emergency Visit Emergency Visit: Yes ED Registration Date: 04/06/19 Care time: The patient presented to the Emergency Department on the above date and was hospitalized for further evaluation of their emergent condition. - New Patient This patient is new to me today: No - Critical Care Critical Care patient: No - Discharge Referral Referred to [facility] No
[2019-04-07] MEDS ORDERED: PT OWN MED DRAWER 7, Y5N ONE (17:44)
[2019-04-07] MEDS: SODIUM CHLORIDE 1,000 ML IV SCH (18:04)
[2019-04-08] MEDS ORDERED: PT OWN MED DRAWER 7, Y5N ONE ×2 (05:20→18:04)
[2019-04-08] MEDS: SODIUM CHLORIDE 1,000 ML IV SCH ×2 (05:36→18:06)
[2019-04-08] MEDS: VANCOMYCIN HCL 1,250 MG in DEXTROSE 5%-WATER - 250 ML IVPB SCH ×2 (06:00→18:06)
[2019-04-08 07:58] LABS: BASO % 0.8 % (0-2.0); EOS % 1.4 % (0-4.5); HEMATOCRIT 33.5 % (35.4-49); HEMOGLOBIN 11.4 GM/dL (11.7-16.9); LYMPH % 32.1 % (8-40); MCH 32.7 pg (25.7-33.7); MCHC 34.1 g/dl (32.0-35.9); MEAN CELL VOLUME 95.7 fl (80-96); MEAN PLT VOLUME 9.1 fl (7.5-11.1); MONO % 15.3 % (3.8-10.2); NEUT % 50.4 % (42.8-82.8); PLATELET COUNT 237 K/MM3 (134-434); RDW 12.5 % (11.9-15.9); WHITE BLOOD COUNT 8.4 K/mm3 (4.0-10.0)
[2019-04-08 08:19] LABS: ALBUMIN 2.9 g/dl (3.4-5.0); BILIRUBIN,TOTAL 0.5 mg/dL (0.2-1); BLOOD UREA NITROGEN 7.8 mg/dL (7-18); CALCIUM 8.8 mg/dL (8.5-10.1); CREATININE 1.1 mg/dL (0.55-1.3); POTASSIUM 3.8 mmol/L (3.5-5.1); TOT PROT 6.6 g/dl (6.4-8.2)
--- NOTE | 2019-04-08 09:53 | OP ---
Operative Note - Note: Operative Date: 04/06/19 Pre-Operative Diagnosis: abscess right buttock Operation: incision and drainage of buttock abscess Findings: incompletely drained right buttock abscess Surgeon: Gopal Fairchild Anesthesiologist/INDIGO MIXER: Artemio Rose Anesthesia: Spinal Specimens Removed: culture only Estimated Blood Loss (mls): 10
--- NOTE | 2019-04-08 10:06 | PN ---
Progress Note (short form) - Note Progress Note: Attending Surgeon POD#2 No c/o; feels better VSS AF wound-open and starting to granulate; induration resolving cultures noted WBC-normal IMP: doing well PLAN: Continue LWC and antibiotics per ID and primary care team. Gopal Fairchild MD FACS
--- NOTE | 2019-04-08 10:46 | PN ---
Physical Exam: SUBJECTIVE: Patient seen and examined. no acute overnight events. feels well and asking to go home tomorrow. OBJECTIVE: Patient is a 44 year old male with no significant past medical history. He reports fever and chills at home and presents with multiple skin abscesses. He is s/p I&D of right buttock wound on 04/06/2019. He also has an abscess on his suprapubic region and left axilla. wound culture grew mrsa. Vital Signs Period Temp Pulse Resp BP Sys/Corbett Pulse Ox Last 24 Hr 98.0 F-98.5 F 55-71 17-20 104-150/53-87 100-100 GENERAL: The patient is awake, alert, and fully oriented, in no acute distress. HEAD: Normal with no signs of trauma. EYES: PERRL, extraocular movements intact, sclera anicteric, conjunctiva clear. No ptosis. ENT: Ears normal, nares patent, oropharynx clear without exudates, moist mucous membranes. NECK: Trachea midline, full range of motion, supple. LUNGS: Breath sounds equal, clear to auscultation bilaterally, no wheezes HEART: Regular rate and rhythm ABDOMEN: Soft, nontender, nondistended, normoactive bowel sounds EXTREMITIES: no edema. SKIN: (s/p I&D right buttocks with reddened surrounding skin-dressing stained and intact), suprapubic abscess/mass noted which firm and tender to touch. left axillary pimple, reddened and tender. Laboratory Results - last 24 hr 04/08/19 04/08/19 04/08/19 06:45 06:45 06:45 WBC 8.4 RBC 3.50 L Hgb 11.4 L Hct 33.5 L MCV 95.7 MCH 32.7 MCHC 34.1 RDW 12.5 Plt Count 237 MPV 9.1 Absolute Neuts (auto) 4.3 Neutrophils % 50.4 D Lymphocytes % 32.1 D Monocytes % 15.3 H Eosinophils % 1.4 Basophils % 0.8 D Nucleated RBC % 0 Sodium 141 Potassium 3.8 Chloride 109 H Carbon Dioxide 30 Anion Gap 3 L BUN 7.8 Creatinine 1.1 Est GFR (CKD-EPI)AfAm 93.47 Est GFR (CKD-EPI)NonAf 80.64 Random Glucose 97 Calcium 8.8 Magnesium 2.0 Total Bilirubin 0.5 AST 19 ALT 22 Alkaline Phosphatase 94 Total Protein 6.6 Albumin 2.9 L Vancomycin Pre-Dose 41.0 H* Active Medications Generic Name Dose Route Start Last Admin Trade Name Maribel PRN Reason Stop Dose Admin Acetaminophen 650 mg 04/07/19 04:22 04/07/19 07:36 Tylenol - PO 650 mg Q4H PRN Administration PAIN LEVEL 1-5 Sodium Chloride 1,000 mls @ 75 mls/hr 04/06/19 17:34 04/08/19 05:36 Normal Saline - IV 75 mls/hr ASDIR JEFFREY Administration Vancomycin HCl 1,250 mg/ 250 mls @ 166.667 mls/hr 04/06/19 18:00 04/08/19 06: 00 Dextrose IVPB 166.667 mls/hr Q12H JEFFREY Administration Protocol ASSESSMENT/PLAN: Problem List - Problems (1) Leukocytosis Assessment/Plan: resolved. on vanco for MRSA of wounds. id following, notes reviewed and appreciated Code(s): D72.829 - ELEVATED WHITE BLOOD CELL COUNT, UNSPECIFIED (2) Abscess Assessment/Plan: multiple abscesses, s/p I&D of right buttock abscess, cultures grew mrsa. likeky community acquired per ID. on vancomycin to be converted to clindamycin in a.m. will need daily wound care. Code(s): L02.91 - CUTANEOUS ABSCESS, UNSPECIFIED (3) Fever Code(s): R50.9 - FEVER, UNSPECIFIED (4) Skin abscess Assessment/Plan: for surgical intervention Code(s): L02.91 - CUTANEOUS ABSCESS, UNSPECIFIED (5) DVT prophylaxis Assessment/Plan: on heparin early ambulation post surgery incentive spirometer Code(s): Z29.9 - ENCOUNTER FOR PROPHYLACTIC MEASURES, UNSPECIFIED (6) Prophylactic measure Assessment/Plan: on heparin incentive spirometer Code(s): Z29.9 - ENCOUNTER FOR PROPHYLACTIC MEASURES, UNSPECIFIED Visit type - Emergency Visit Emergency Visit: Yes ED Registration Date: 04/06/19 Care time: The patient presented to the Emergency Department on the above date and was hospitalized for further evaluation of their emergent condition. - New Patient This patient is new to me today: No - Critical Care Critical Care patient: No - Discharge Referral Referred to [facility] Med P.C.: No
--- NOTE | 2019-04-08 14:07 | PN ---
Progress Note (short form) - Note Progress Note: doing well Vital Signs Period Temp Pulse Resp BP Sys/Corbett Pulse Ox Last 24 Hr 98.0 F-98.5 F 55-71 17-20 104-150/53-87 100-100 cor-rrr lungs clear abd soft,nt buttock abscess is clean, packing removed, no purulence groin pustule is smaller ext no edema CBC, BMP 04/08/19 06:45 04/08/19 06:45 Microbiology 04/06/19 11:00 Abscess Gram Stain - Final 04/06/19 11:00 Abscess Wound Culture - Preliminary S Aureus 04/06/19 17:30 Abscess Gram Stain - Final 04/06/19 17:30 Abscess Wound Culture - Preliminary Staphylococcus Latex Coag Pos 04/06/19 18:40 Nares - Mrsa Screen - Right MRSA Screen - Final NO MRSA ISOLATED 04/06/19 18:40 Nares - Mrsa Screen - Left MRSA Screen - Final Presumptive Mrsa (Pbp2a Pos) 04/06/19 22:05 Urine - Urine Clean Catch Urine Culture - Final NO GROWTH OBTAINED 04/05/19 19:50 Blood - Peripheral Venous Blood Culture - Preliminary NO GROWTH OBTAINED AFTER 48 HOURS, INCUBATION TO CONTINUE FOR 3 DAYS. 04/05/19 19:50 Blood - Peripheral Venous Blood Culture - Preliminary NO GROWTH OBTAINED AFTER 48 HOURS, INCUBATION TO CONTINUE FOR 3 DAYS. a/p multiple skin abscesses -community MRSA infection continue vancomycin, check level today, suspect prior level was with infusion in progress can switch to po antibioitics in am- clindamycin 300 tid for 7 days his partner is coming today to learn how to do his wound care he will need vns and f/u as outpt isolation-contact please call back if needed Problem List - Problems (1) Fever Code(s): R50.9 - FEVER, UNSPECIFIED (2) Skin abscess Code(s): L02.91 - CUTANEOUS ABSCESS, UNSPECIFIED
--- NOTE | 2019-04-08 15:40 | OP ---
DATE OF OPERATION: 04/06/2019 PREOPERATIVE DIAGNOSIS: Abscess of the right buttocks. POSTOPERATIVE DIAGNOSIS: Abscess of the right buttocks. PROCEDURE: Incision and drainage of buttock abscess. SURGEON: Gopal Fairchild MD ANESTHESIA: Spinal. OPERATIVE FINDINGS: There was an incompletely drained right buttock abscess with residual purulent material present and marked induration of the subcutaneous tissue. The abscess was multiloculated in nature. The rest of the findings were unremarkable. PROCEDURE: The patient was placed on the operating table in the left lateral decubitus position after the placement of spinal anesthesia. The right buttock was then prepped with Betadine and draped in sterile fashion. A timeout was taken and incision was made with a scalpel and taken down through skin and subcutaneous tissue until purulent drainage was obtained, which was sent for culture and sensitivity to the microbiology lab. Blunt dissection was carried out to break up all loculation and then the wound was copiously irrigated with saline and peroxide in a 50/50 concentration. Hemostasis was secured with electrocautery and then the wound was packed with 1-inch iodoform gauze and dressed with dry sterile dressings. The procedure was terminated at this point and the patient transferred to the post-anesthesia care unit in stable condition, awake and alert. ESTIMATED BLOOD LOSS: 10 mL. FLUID REPLACEMENT: Crystalloid. DRAINS: Iodoform 1-inch packing. SPECIMENS: None. I, Gopal Fairchild, was physically present in the operating room from the time the patient was placed on the operating table until he was transferred to the post-anesthesia care unit in [employer]. MD BOLIVAR Carpenter/[id number]
[2019-04-08] MEDS: ACETAMINOPHEN 325 MG TABLET (FP) PO PRN (20:56)
[2019-04-09] MEDS: SODIUM CHLORIDE 1,000 ML IV SCH (02:20)
[2019-04-09] MEDS ORDERED: PT OWN MED DRAWER 7, Y5N ONE (03:01)
[2019-04-09] MEDS: VANCOMYCIN HCL 1,250 MG in DEXTROSE 5%-WATER - 250 ML IVPB SCH (05:42)
[2019-04-09 08:27] LABS: BASO % 0.8 % (0-2.0); EOS % 1.5 % (0-4.5); HEMATOCRIT 35.7 % (35.4-49); LYMPH % 36.9 % (8-40); MCH 32.3 pg (25.7-33.7); MCHC 33.6 g/dl (32.0-35.9); MEAN CELL VOLUME 95.9 fl (80-96); MONO % 15.1 % (3.8-10.2); NEUT % 45.7 % (42.8-82.8); PLATELET COUNT 277 K/MM3 (134-434); RBC 3.72 M/mm3 (4.00-5.60); RDW 12.8 % (11.9-15.9); WHITE BLOOD COUNT 7.8 K/mm3 (4.0-10.0)
[2019-04-09 08:55] LABS: ALBUMIN 3.4 g/dl (3.4-5.0); BILIRUBIN,TOTAL 0.4 mg/dL (0.2-1); BLOOD UREA NITROGEN 10.2 mg/dL (7-18); CREATININE 1.1 mg/dL (0.55-1.3); MAGNESIUM 2.1 mg/dL (1.8-2.4); POTASSIUM 3.9 mmol/L (3.5-5.1); TOT PROT 7.4 g/dl (6.4-8.2)
--- NOTE | 2019-04-09 09:28 | PN ---
Physical Exam: SUBJECTIVE: Patient seen and examined at the bedside. Patient noticed that he had blood on his underwear this morning and noted pink tinged urine with small amounts of clots. Denies urinary frequency, urgency or dysuria. Denies fever or chills. OBJECTIVE: patient urine pink tinged with three small specks of blood, had hematuria overnight also. denies any flank pain, or painful urination. will order: kidney/bladder u/s labs:negative for stds, hmg/hct stable patient was on heparin up until 04/06/2019, but stopped for surgical preocedure. not on asa or any other blood thinners will also repeat ua/uc ------- Patient is a 44 year old male with no significant past medical history. He reports fever and chills at home and presents with multiple skin abscesses. He is s/p I&D of right buttock wound on 04/06/2019. He also has an abscess on his suprapubic region and left axilla. wound culture grew mrsa. He was being treated with Vancomycin and will be converted to Clindamycin per ID recommendations. Patient developed hematuria overnight, hmg/hct stable and negative for stds. Vital Signs Period Temp Pulse Resp BP Sys/Corbett Pulse Ox Last 24 Hr 98.1 F-98.7 F 53-71 16-20 129-147/64-80 100 GENERAL: The patient is awake, alert, and fully oriented, in no acute distress. HEAD: Normal with no signs of trauma. EYES: PERRL, extraocular movements intact, sclera anicteric, conjunctiva clear. No ptosis. ENT: Ears normal, nares patent, oropharynx clear without exudates, moist mucous membranes. NECK: Trachea midline, full range of motion, supple. LUNGS: Breath sounds equal, clear to auscultation bilaterally, no wheezes HEART: Regular rate and rhythm ABDOMEN: Soft, nontender, nondistended, normoactive bowel sounds EXTREMITIES: no edema. SKIN: (s/p I&D right buttocks with reddened surrounding skin-dressing stained and intact), suprapubic abscess/mass noted which firm and tender to touch but decreased in size. left axillary pimple, reddened and tender. Laboratory Results - last 24 hr 02/21/20 02/23/20 02/24/20 09:51 16:30 07:15 WBC 7.8 RBC 3.72 L Hgb 12.0 Hct 35.7 MCV 95.9 MCH 32.3 MCHC 33.6 RDW 12.8 Plt Count 277 MPV 9.0 Absolute Neuts (auto) 3.6 Neutrophils % 45.7 Lymphocytes % 36.9 Monocytes % 15.1 H Eosinophils % 1.5 Basophils % 0.8 Nucleated RBC % 0 Sodium Potassium Chloride Carbon Dioxide Anion Gap BUN Creatinine Est GFR (CKD-EPI)AfAm Est GFR (CKD-EPI)NonAf Random Glucose Calcium Magnesium Total Bilirubin AST ALT Alkaline Phosphatase Total Protein Albumin Vancomycin Pre-Dose 14.8 H C. trachomatis (DUSTIN) Negative N.gonorrhoeae DNA (DUSTIN) Negative T. vaginalis (DUSTIN) Negative 04/09/19 07:15 WBC RBC Hgb Hct MCV MCH MCHC RDW Plt Count MPV Absolute Neuts (auto) Neutrophils % Lymphocytes % Monocytes % Eosinophils % Basophils % Nucleated RBC % Sodium 138 Potassium 3.9 Chloride 106 Carbon Dioxide 28 Anion Gap 4 L BUN 10.2 Creatinine 1.1 Est GFR (CKD-EPI)AfAm 93.47 Est GFR (CKD-EPI)NonAf 80.64 Random Glucose 99 Calcium 9.0 Magnesium 2.1 Total Bilirubin 0.4 AST 34 ALT 36 Alkaline Phosphatase 103 Total Protein 7.4 Albumin 3.4 Vancomycin Pre-Dose C. trachomatis (DUSTIN) N.gonorrhoeae DNA (DUSTIN) T. vaginalis (DUSTIN) Active Medications Generic Name Dose Route Start Last Admin Trade Name Freq PRN Reason Stop Dose Admin Acetaminophen 650 mg 04/07/19 04:22 04/08/19 20:56 Tylenol - PO 650 mg Q4H PRN Administration PAIN LEVEL 1-5 Clindamycin HCl 300 mg 04/09/19 14:00 Cleocin - PO 04/15/19 23:00 TID JEFFREY Sodium Chloride 1,000 mls @ 75 mls/hr 04/06/19 17:34 04/09/19 02:20 Normal Saline - IV 75 mls/hr ASDIR JEFFREY Administration ASSESSMENT/PLAN: Problem List - Problems (1) Hematuria Assessment/Plan: Patient developed hematuria overnight hmg/hct stable on ivf kidney/bladder ultrasound ordered and pending monitor intake and output no clots seen on penile exam which was done in presence of primary RN, no scrotum swelling will await imaging results and consult with urology once imaging results Code(s): R31.9 - HEMATURIA, UNSPECIFIED (2) Leukocytosis Assessment/Plan: resolved. s/p i&d, was on vancomycin and now on clindamycin 300mg tid (04/09-> 04/15/2019) Code(s): D72.829 - ELEVATED WHITE BLOOD CELL COUNT, UNSPECIFIED (3) Abscess Assessment/Plan: multiple abscesses, s/p I&D of right buttock abscess, cultures grew mrsa. likeky community acquired per ID. s/p vancomycin now on clindamycin tid x 7 days will need daily wound care and his significant other who is an RN has been taught how to change dressings daily Code(s): L02.91 - CUTANEOUS ABSCESS, UNSPECIFIED (4) Fever Assessment/Plan: resolved Code(s): R50.9 - FEVER, UNSPECIFIED (5) Skin abscess Assessment/Plan: left axilla, suprapubic region and right buttocks (right buttocks s/p I&D) + mrsa Code(s): L02.91 - CUTANEOUS ABSCESS, UNSPECIFIED (6) DVT prophylaxis Assessment/Plan: SCDs early ambulation post surgery incentive spirometer Code(s): Z29.9 - ENCOUNTER FOR PROPHYLACTIC MEASURES, UNSPECIFIED (7) Prophylactic measure Assessment/Plan: incentive spirometer Code(s): Z29.9 - ENCOUNTER FOR PROPHYLACTIC MEASURES, UNSPECIFIED Visit type - Emergency Visit Emergency Visit: Yes ED Registration Date: 04/06/19 Care time: The patient presented to the Emergency Department on the above date and was hospitalized for further evaluation of their emergent condition. - New Patient This patient is new to me today: No - Critical Care Critical Care patient: No - Discharge Referral Referred to [facility] Med P.C.: No
[2019-04-09 11:42] LABS: EPI CELLS 0 /HPF (0-5/HPF); HYALINE CASTS 0 /lpf (0-8); PH,URINE 6.5 (5.0-8.0); URINE APPEARANCE CLEAR; URINE BILIRUBIN NEGATIVE (NEGATIVE); URINE COLOR YELLOW; URINE GLUCOSE (UA) NEGATIVE (NEGATIVE); URINE KETONE NEGATIVE (NEGATIVE); URINE LEUK ESTERASE NEGATIVE (NEGATIVE); URINE NITRITE NEGATIVE (NEGATIVE); URINE PROTEIN NEGATIVE (NEGATIVE); URINE UROBILINOGEN 0.2 mg/dL (0.2-1.0); URINE WBC 0 /hpf (0-5)
[2019-04-09 12:46] LABS: URINE RBC 18 /hpf (0-4)
[2019-04-09 12:47] LABS: URINE BACTERIA 0.7 /hpf (NEGATIVE); URINE CRYSTALS NONE SEEN /hpf
[2019-04-09] MEDS: CLINDAMYCIN HCL 150 MG CAPSULE (FP) PO SCH ×2 (13:45→21:27)
[2019-04-10] MEDS: CLINDAMYCIN HCL 150 MG CAPSULE (FP) PO SCH ×2 (05:22→13:26)
[2019-04-10] MEDS: SODIUM CHLORIDE 1,000 ML IV SCH (05:23)
[2019-04-10 07:17] LABS: BASO % 0.9 % (0-2.0); EOS % 1.2 % (0-4.5); HEMATOCRIT 33.5 % (35.4-49); HEMOGLOBIN 11.3 GM/dL (11.7-16.9); LYMPH % 35.2 % (8-40); MCH 32.4 pg (25.7-33.7); MCHC 33.6 g/dl (32.0-35.9); MEAN CELL VOLUME 96.4 fl (80-96); MEAN PLT VOLUME 8.4 fl (7.5-11.1); MONO % 14.7 % (3.8-10.2); PLATELET COUNT 277 K/MM3 (134-434); RBC 3.48 M/mm3 (4.00-5.60); RDW 12.7 % (11.9-15.9); WHITE BLOOD COUNT 7.9 K/mm3 (4.0-10.0)
[2019-04-10 07:52] LABS: BILIRUBIN,TOTAL 0.4 mg/dL (0.2-1); BLOOD UREA NITROGEN 10.7 mg/dL (7-18); CALCIUM 8.9 mg/dL (8.5-10.1); CREATININE 1.2 mg/dL (0.55-1.3); MAGNESIUM 1.9 mg/dL (1.8-2.4); POTASSIUM 3.7 mmol/L (3.5-5.1); TOT PROT 6.9 g/dl (6.4-8.2)
[2019-04-10 08:34] VITALS: BP 158/74; PULSE 49; TEMP 97.8
--- NOTE | 2019-04-10 09:20 | PN ---
Progress Note, Physician History of Present Illness: Patient is a 44 year old male with no significant past medical history. He reports fever and chills at home and presents with multiple skin abscesses. He is s/p I&D of right buttock wound on 04/06/2019. He also has an abscess on his suprapubic region and left axilla. wound culture grew mrsa. He was being treated with Vancomycin and will be converted to Clindamycin per ID recommendations. Patient developed hematuria overnight, hmg/hct stable and negative for stds. - Current Medication List Current Medications: Active Medications Acetaminophen (Tylenol -) 650 mg PO Q4H PRN PRN Reason: PAIN LEVEL 1-5 Last Admin: 04/08/19 20:56 Dose: 650 mg Clindamycin HCl (Cleocin -) 300 mg PO TID [facility] Stop: 04/15/19 23:00 Last Admin: 04/10/19 05:22 Dose: 300 mg Sodium Chloride (Normal Saline -) 1,000 mls @ 75 mls/hr IV ASDIR JEFFREY Last Admin: 04/10/19 05:23 Dose: Not Given - Objective Vital Signs: Vital Signs Temperature 97.8 F 04/10/19 08:33 Pulse Rate 49 L 04/10/19 08:33 Respiratory Rate 18 04/10/19 08:33 Blood Pressure 158/74 04/10/19 08:33 O2 Sat by Pulse Oximetry (%) 100 04/09/19 21:00 Labs: CBC, BMP 04/10/19 06:30 04/10/19 06:30 INR, PTT INR 1.38 (0.83-1.09) H 04/06/19 07:55 Problem List - Problems (1) Hematuria Assessment/Plan: urology consulted once cleared by urology pt can be discharged home hematuria has improved throughout the day kidney u/s shows increased renal parencymal echogencity bladder u/s negative for any acute findings patient wanted to leave [facility], but has decided to stay until seen by urology Patient developed hematuria overnight hmg/hct stable on ivf kidney/bladder ultrasound ordered and pending monitor intake and output no clots seen on penile exam which was done in presence of primary RN, no scrotum swelling will await imaging results and consult with urology once imaging results Code(s): R31.9 - HEMATURIA, UNSPECIFIED (2) Prophylactic measure Code(s): Z29.9 - ENCOUNTER FOR PROPHYLACTIC MEASURES, UNSPECIFIED (3) Abscess Assessment/Plan: s/p I&D of right buttock wound on 04/06/2019. Code(s): L02.91 - CUTANEOUS ABSCESS, UNSPECIFIED (4) Leukocytosis Code(s): D72.829 - ELEVATED WHITE BLOOD CELL COUNT, UNSPECIFIED (5) Skin abscess Code(s): L02.91 - CUTANEOUS ABSCESS, UNSPECIFIED
--- NOTE | 2019-04-10 12:01 | CON.GU ---
Consult Consult Specialty:: Urology Referred by:: Medical service Reason for Consultation:: gross hematuria - History of Present Illness Chief Complaint: Gross hematuria History of Present Illness: 44 yo male s/p I and D now w gross hematuria Min voiding symptoms - Alcohol/Substance Use Hx Alcohol Use: No - Smoking History Smoking history: Former smoker Have you smoked in the past 12 months: No Aproximately how many cigarettes per day: 0 If you are a former smoker, when did you quit?: Home Medications - Allergies Allergies/Adverse Reactions: Allergies Allergy/AdvReac Type Severity Reaction Status Date / Time No Known Allergies Allergy Verified 04/05/19 18:43 - Home Medications Home Medications: Ambulatory Orders Clindamycin HCl 300 mg PO TID #21 capsule 04/09/19 Physical Exam- Vital Signs: Vital Signs Temperature 97.8 F 04/10/19 08:33 Pulse Rate 49 L 04/10/19 08:33 Respiratory Rate 18 04/10/19 08:33 Blood Pressure 158/74 04/10/19 08:33 O2 Sat by Pulse Oximetry (%) 100 04/10/19 09:00 Constitutional: Yes: Well Nourished Eyes: Yes: WNL HENT: Yes: WNL Neck: Yes: WNL Cardiovascular: Yes: WNL Gastrointestinal: Yes: WNL Renal/: Yes: WNL Kidneys: Yes: WNL Labs: CBC, BMP 04/10/19 06:30 04/10/19 06:30 Imaging - Results Cat Scan: Report Reviewed Ultrasound: Report Reviewed Problem List - Problems (1) Hematuria Assessment/Plan: Gross hematuria Renal sono nl Urine mostly clear w blood tinge No hydro or stones For opt cystoscopy discussed risk of bladder cancer and need for follow up Code(s): R31.9 - HEMATURIA, UNSPECIFIED
--- NOTE | 2019-04-10 12:25 | DS ---
Physical Exam: SUBJECTIVE: Patient seen and examined Patient is a 44 year old male with no significant past medical history. s/p I& D of right buttock wound on 04/06/2019. wound culture grew mrsa. Being treated with Clindamycin per ID recommendations. Patient developed hematuria seen by and cleared for discharge with outpt f/u OBJECTIVE: Vital Signs Period Temp Pulse Resp BP Sys/Corbett Pulse Ox Last 24 Hr 97.8 F-98.5 F 49-96 18-19 124-158/50-80 100-100 PHYSICAL EXAM GENERAL: The patient is awake, alert, and fully oriented, in no acute distress. HEAD: Normal with no signs of trauma. EYES: PERRL, extraocular movements intact, sclera anicteric, conjunctiva clear. ENT: Ears normal, nares patent, oropharynx clear without exudates, moist mucous membranes. NECK: Trachea midline, full range of motion, supple. LUNGS: Breath sounds equal, clear to auscultation bilaterally, no wheezes, no crackles, no accessory muscle use. HEART: Regular rate and rhythm, S1, S2 without murmur, rub or gallop. ABDOMEN: Soft, nontender, nondistended, normoactive bowel sounds, no guarding, no rebound, no hepatosplenomegaly, no masses. EXTREMITIES: 2+ pulses, warm, well-perfused, no edema. NEUROLOGICAL: Cranial nerves II through XII grossly intact. Normal speech, gait not observed. PSYCH: Normal mood, normal affect. SKIN: Warm, dry, normal turgor, no rashes or lesions noted. Drsg c/d/i/ to right buttock LABS Laboratory Results - last 24 hr 04/09/19 04/10/19 04/10/19 09:15 06:30 06:30 WBC 7.9 RBC 3.48 L Hgb 11.3 L Hct 33.5 L MCV 96.4 H MCH 32.4 MCHC 33.6 RDW 12.7 Plt Count 277 MPV 8.4 Absolute Neuts (auto) 3.8 Neutrophils % 48.0 Lymphocytes % 35.2 Monocytes % 14.7 H Eosinophils % 1.2 Basophils % 0.9 Nucleated RBC % 0 Sodium 142 Potassium 3.7 Chloride 108 H Carbon Dioxide 29 Anion Gap 5 L BUN 10.7 Creatinine 1.2 Est GFR (CKD-EPI)AfAm 84.13 Est GFR (CKD-EPI)NonAf 72.59 Random Glucose 81 Calcium 8.9 Magnesium 1.9 Total Bilirubin 0.4 AST 29 ALT 36 Alkaline Phosphatase 92 Total Protein 6.9 Albumin 3.0 L Urine RBC (Auto) 18 Urine Crystals (Auto) None seen Urine Bacteria (Auto) 0.7 HOSPITAL COURSE: Date of Admission:04/06/19 Date of Discharge: 04/10/19 Problem List - Problems (1) Hematuria Assessment/Plan: Patient developed hematuria kidney/bladder ultrasound without acute pathology seen by and f/u cystoscopy as outpt Code(s): R31.9 - HEMATURIA, UNSPECIFIED (2) Leukocytosis Assessment/Plan: resolved. s/p i&d, was on vancomycin and now on clindamycin 300mg tid (04/09-> 04/15/2019) Code(s): D72.829 - ELEVATED WHITE BLOOD CELL COUNT, UNSPECIFIED (3) Abscess Assessment/Plan: multiple abscesses, s/p I&D of right buttock abscess, cultures grew mrsa. s/p vancomycin now on clindamycin tid x 7 days will need daily wound care and his significant other who is an RN has been taught how to change dressings daily Code(s): L02.91 - CUTANEOUS ABSCESS, UNSPECIFIED (4) Fever Assessment/Plan: resolved Code(s): R50.9 - FEVER, UNSPECIFIED (5) Skin abscess Assessment/Plan: left axilla, suprapubic region and right buttocks (right buttocks s/p I&D) + mrsa Code(s): L02.91 - CUTANEOUS ABSCESS, UNSPECIFIED Stable for discharge to home with wound care Minutes to complete discharge: 45 Discharge Summary Problems reviewed: Yes Reason For Visit: ABSCESS Current Active Problems Abscess (Acute) DVT prophylaxis (Acute) Fever (Acute) Hematuria (Acute) Leukocytosis (Acute) Prophylactic measure (Acute) Skin abscess (Acute) Hospital Course: - Problems (1) Hematuria Assessment/Plan: Patient developed hematuria kidney/bladder ultrasound without acute pathology seen by and f/u cystoscopy as outpt Code(s): R31.9 - HEMATURIA, UNSPECIFIED (2) Leukocytosis Assessment/Plan: resolved. s/p i&d, was on vancomycin and now on clindamycin 300mg tid (04/09-> 04/15/2019) Code(s): D72.829 - ELEVATED WHITE BLOOD CELL COUNT, UNSPECIFIED (3) Abscess Assessment/Plan: multiple abscesses, s/p I&D of right buttock abscess, cultures grew mrsa. s/p vancomycin now on clindamycin tid x 7 days will need daily wound care and his significant other who is an RN has been taught how to change dressings daily Code(s): L02.91 - CUTANEOUS ABSCESS, UNSPECIFIED (4) Fever Assessment/Plan: resolved Code(s): R50.9 - FEVER, UNSPECIFIED (5) Skin abscess Assessment/Plan: left axilla, suprapubic region and right buttocks (right buttocks s/p I&D) + mrsa Code(s): L02.91 - CUTANEOUS ABSCESS, UNSPECIFIED Stable for discharge to home with wound care - Instructions Diet, Activity, Other Instructions: DISCHARGE YOUR VISIT You came to the hospital because developed an abcess. You were seen by Dr Fairchild and it was drained. Continue to take clindamycin three times a day for 1 week. While you were here you developed blood in your urine. An ultrasound was done that was normal. A urologist saw you and recommenced a cystoscopy as an outpatient MEDICATIONS Please continue to take your home medications as prescribed. There was no changes DIET Continue your home diet ADDITIONAL CARE Please make an appointment to see your primary care provider, 3 weeks from today. Devorah - abscess I&D Discharge Instructions Activity * We recommend walking daily, increase the amount you walk each day. Walking boosts blood flow and helps prevent pneumonia and constipation * You may drive when you are no longer taking pain medicine and are able to sit comfortably for a long period of time. * Most people are able to return to work within 1 to 2 weeks after surgery. * Diet * You can eat your normal diet. * Drink plenty of fluids (unless you have a medical condition prohibiting you from doing so) * Include high-fiber foods, such as fruits, vegetables, beans, and whole grains , in your diet each day. * You may notice that your bowel movements are not regular right after your surgery. This is common. Try to avoid constipation and straining with bowel movements. We recommend taking a fiber supplement and/or stool softener daily. Medicines * Take any narcotic pain medication as prescribed. Do not drink, drive, or operate heavy machinery while taking narcotic pain medications. Incision care * We recommend daily showers and cover the wound with gauze. * Other instructions * Wound will close on its own. ADDITIONAL INFORMATION Please call 911 or come directly to the emergency department if you experience unusual headache, vision change, shortness of breath, chest pain, numbness, tingling, loss of alertness/awareness, loss of function, unusual bleeding or any alarming symptoms. Thank you for allowing me to care for you. Kristofer Conway, [facility], [facility] [phone] Referrals: Gopal Fairchild MD [Staff Physician] - Smooth Hollis MD., MD [Staff Physician] - (call for appoint,ment for a cyctoscopy) - Home Medications Comprehensive Discharge Medication List: Ambulatory Orders Clindamycin HCl 300 mg PO TID #21 capsule 04/09/19 Prescription Drug Monitoring Program (I-STOP) results: I-STOP not reviewed Problem List - Problems (1) Hematuria Code(s): R31.9 - HEMATURIA, UNSPECIFIED (2) Prophylactic measure Code(s): Z29.9 - ENCOUNTER FOR PROPHYLACTIC MEASURES, UNSPECIFIED (3) Abscess Code(s): L02.91 - CUTANEOUS ABSCESS, UNSPECIFIED (4) Leukocytosis Code(s): D72.829 - ELEVATED WHITE BLOOD CELL COUNT, UNSPECIFIED (5) Skin abscess Code(s): L02.91 - CUTANEOUS ABSCESS, UNSPECIFIED This patient is new to me today: Yes Date on this admission: 04/10/19 Emergency Visit: Yes ED Registration Date: 04/06/19 Care time: The patient presented to the Emergency Department on the above date and was hospitalized for further evaluation of their emergent condition. Critical Care patient: No - Discharge Referral Referred to [id number] Med P.C.: No
== END 2019-04-10 14:22 | disposition home or self-care (01) | DRG 383 ==
LOC: JERFT 18:36 → JER 18:36 → JERBED 23:48 → OBSVTOIN 04-06 00:32 → JERBED 04-06 08:30 → J7W 04-06 14:21
PROVIDERS: ADMIT Internal Medicine; ATTEND Nurse Practitioner Acute Care
DX: L02.31 Cutaneous abscess of buttock (principal); R63.4 Abnormal weight loss; D72.829 Elevated white blood cell count, unspecified; L02.412 Cutaneous abscess of left axilla; L02.215 Cutaneous abscess of perineum; A49.02 Methicillin resistant Staphylococcus aureus infection, unspecified site; R31.9 Hematuria, unspecified; R50.9 Fever, unspecified; L02.214 Cutaneous abscess of groin
CPT/HCPCS: 36415; 72193-TC; 76775-TC; 76856-TC; 80048; 80053; 81003; 83036; 83605; 83735; 85025; 85610; 85730; 86850; 86900; 86901; 87040; 87070; 87077; 87081; 87086; 87186; 87205; 87389; 87491; 87591; 87661; 87804; 94760; 99285-25; G0378; G0480; J1644; J7030; Q9967

== ENCOUNTER 2020-05-18 00:39 | Emergency (ER) | payer BC ==
[2020-05-18 01:24] VITALS: BP 147/98; PULSE 61; TEMP 97.8; BMI 25.4
[2020-05-18] MEDS ORDERED: METOCLOPRAMIDE HCL INJECTION 10 MG/2 ML VIAL IVPUSH ONE (01:33)
[2020-05-18] MEDS ORDERED: SODIUM CHLORIDE 0.9% 500 ML INFUS.BAG IV ONE (01:33)
[2020-05-18] MEDS ORDERED: ACETAMINOPHEN 1000 MG/100 ML VIAL (NON FORMULARY) IVPB ONE (01:33)
[2020-05-18] MEDS ORDERED: ACETAMINOPHEN INJECTION 100 ML IVPB ONE (01:45)
[2020-05-18] MEDS ORDERED: METOCLOPRAMIDE HCL INJECTION 10 MG/2 ML VIAL ONE (01:45)
== END 2020-05-18 04:28 | disposition home or self-care (01) ==
LOC: JER 00:39
PROC: 3E033NZ Introduction of Analgesics, Hypnotics, Sedatives into Peripheral Vein, Percutaneous Approach (ICD-10-PCS; principal; 2020-05-18)
PROC: 3E033GC Introduction of Other Therapeutic Substance into Peripheral Vein, Percutaneous Approach (ICD-10-PCS; 2020-05-18)
DX: R51.9 Headache, unspecified (principal)
CPT/HCPCS: 96374; 96375; 99285-25; J0131

== ENCOUNTER 2020-05-19 23:50 | Emergency (ER) | payer BC ==
[2020-05-20 00:39] VITALS: BP 145/83; PULSE 51; TEMP 98.2; BMI 25.1
[2020-05-20] MEDS ORDERED: ACETAMINOPHEN 1000 MG/100 ML VIAL (NON FORMULARY) IVPB ONE (00:56)
[2020-05-20] MEDS ORDERED: METOCLOPRAMIDE HCL INJECTION 10 MG/2 ML VIAL IVPUSH ONE (00:56)
[2020-05-20] MEDS ORDERED: SODIUM CHLORIDE 0.9% 500 ML INFUS.BAG IV ONE (00:56)
[2020-05-20] MEDS ORDERED: METOCLOPRAMIDE HCL INJECTION 10 MG/2 ML VIAL ONE (01:13)
[2020-05-20] MEDS ORDERED: ACETAMINOPHEN INJECTION 100 ML IVPB ONE (01:13)
[2020-05-20 01:48] LABS: BASO % 0.3 % (0-2.0); EOS % 0.7 % (0-4.5); HEMATOCRIT 36.9 % (35.4-49); HEMOGLOBIN 12.5 GM/dL (11.7-16.9); LYMPH % 37.1 % (8-40); MCHC 33.8 g/dl (32.0-35.9); MEAN CELL VOLUME 97.7 fl (80-96); MEAN PLT VOLUME 8.2 fl (7.5-11.1); MONO % 10.5 % (3.8-10.2); NEUT % 51.4 % (42.8-82.8); PLATELET COUNT 182 K/MM3 (134-434); RBC 3.78 M/mm3 (4.00-5.60); RDW 13.1 % (11.9-15.9); WHITE BLOOD COUNT 7.4 K/mm3 (4.0-10.0)
[2020-05-20 02:03] LABS: ALBUMIN 3.8 g/dl (3.4-5.0); BLOOD UREA NITROGEN 21.6 mg/dL (7-18); CALCIUM 9.6 mg/dL (8.5-10.1)
[2020-05-20 02:07] LABS: CREATININE 1.2 mg/dL (0.55-1.3)
[2020-05-20 02:08] LABS: BILIRUBIN,TOTAL 0.2 mg/dL (0.2-1); TOT PROT 7.5 g/dl (6.4-8.2)
== END 2020-05-20 05:14 | disposition home or self-care (01) ==
LOC: JER 23:50
PROC: 3E033GC Introduction of Other Therapeutic Substance into Peripheral Vein, Percutaneous Approach (ICD-10-PCS; principal; 2020-05-20)
DX: G43.909 Migraine, unspecified, not intractable, without status migrainosus (principal)
CPT/HCPCS: 36415; 70450-TC; 80053; 85025; 96374; 96375; 99285-25; C9803; J0131; U0003; U0005

== ENCOUNTER 2021-03-24 22:28 | Emergency (ER) | payer BC ==
[2021-03-24 22:39] VITALS: TEMP 98.8; BMI 25.2
[2021-03-24] MEDS ORDERED: KETOROLAC TROMETHAMINE 30 MG/1 ML VIAL IM ONE (22:57)
[2021-03-24] MEDS ORDERED: KETOROLAC TROMETHAMINE 30 MG/1 ML VIAL ONE (23:08)
[2021-03-25] MEDS ORDERED: AMOX TR/POT CLAV 875MG/125MG TABLETS (FP) PO ONE (00:20)
[2021-03-25] MEDS ORDERED: AMOX TR/POT CLAV 875MG/125MG TABLETS (FP) ONE (00:31)
[2021-03-25 00:45] VITALS: BP 132/76; PULSE 74
== END 2021-03-25 00:45 | disposition home or self-care (01) ==
LOC: JER 22:28
PROC: 3E0233Z Introduction of Anti-inflammatory into Muscle, Percutaneous Approach (ICD-10-PCS; principal; 2021-03-24)
DX: S60.222A Contusion of left hand, initial encounter (principal); W50.3XXA Accidental bite by another person, initial encounter; Y92.9 Unspecified place or not applicable
CPT/HCPCS: 73130-TC-LT-FY; 96372; 99284-25

== ENCOUNTER 2022-06-29 21:42 | Emergency (ER) | payer BC ==
[2022-06-29 21:48] VITALS: BP 141/99; PULSE 67; RESP 18; TEMP 98.1; BMI 23.0
[2022-06-29] MEDS ORDERED: ACETAMINOPHEN 1000 MG/100 ML BAG IVPB ONE (22:30)
[2022-06-29] MEDS ORDERED: SODIUM CHLORIDE 0.9% 500 ML INFUS.BAG IV ONE (22:30)
[2022-06-29] MEDS ORDERED: METOCLOPRAMIDE HCL INJECTION 10 MG/2 ML VIAL IVPUSH ONE (22:30)
[2022-06-29] MEDS ORDERED: ACETAMINOPHEN INJECTION 100 ML IVPB ONE (22:32)
[2022-06-29] MEDS ORDERED: METOCLOPRAMIDE HCL INJECTION 10 MG/2 ML VIAL ONE (22:32)
== END 2022-06-30 | disposition home or self-care (01) ==
LOC: JER 21:42
PROC: 3E033NZ Introduction of Analgesics, Hypnotics, Sedatives into Peripheral Vein, Percutaneous Approach (ICD-10-PCS; principal; 2022-06-29)
PROC: 3E033GC Introduction of Other Therapeutic Substance into Peripheral Vein, Percutaneous Approach (ICD-10-PCS; 2022-06-29)
DX: G44.009 Cluster headache syndrome, unspecified, not intractable (principal); R11.0 Nausea
CPT/HCPCS: 99284-25